=== PATIENT | female | born 1965 | race Caucasian/White ===

== ENCOUNTER 2019-01-16 10:15 | Day surgery (SDC) | payer OTHER ==
[~2019-01-16] VITALS: Ht 162.6 cm; Wt 59.9 kg
[~2019-01-16 10:15] MED LIST: LEVO112T4 PO
[2019-01-16] MEDS ORDERED: potassium PO (10:58)
[2019-01-16] MEDS ORDERED: MAGN400C PO (10:58)
[2019-01-16] MEDS ORDERED: biotin PO (10:58)
[2019-01-16] MEDS ORDERED: ST.300CA PO (10:58)
[2019-01-16] MEDS ORDERED: natural thyroid PO (10:58)
[2019-01-16 10:59] VITALS: BP 120/78
[2019-01-16] MEDS ORDERED: LACTATED RINGERS 1,000 ML IV SCH (11:35)
[2019-01-16] MEDS ORDERED: LIDOCAINE-MPF 1%, 2ML ONE (11:41)
[2019-01-16 11:44] LABS: HCG UR SG 1.019 (1.003-1.030)
[2019-01-16] MEDS ORDERED: LIDOCAINE-MPF 1%, 2ML INFIL ONE (12:00)
[2019-01-16] MEDS ORDERED: FENTANYL PF 100 MCG/2ML ONE (13:12)
[2019-01-16] MEDS ORDERED: MIDAZOLAM 1 MG/ML, 2ML ONE (13:13)
[2019-01-16] MEDS ORDERED: PROPOFOL 100 ML ONE (13:14)
[2019-01-16] MEDS ORDERED: OXYcodone 5 MG/5 ML ORAL.SOL UDC PO PRN (13:30)
[2019-01-16] MEDS ORDERED: ONDANSETRON 2MG/ML, 2ML IV PRN (13:30)
[2019-01-16] MEDS ORDERED: HYDROmorphone 2 MG/ML, 1ML IVPush PRN (13:30)
[2019-01-16] MEDS ORDERED: ACETAMINOPHEN 325 MG TABLET PO PRN (13:30)
[2019-01-16] MEDS ORDERED: ONDANSETRON ODT 8 MG PO PRN (13:30)
[2019-01-16] MEDS ORDERED: PROMETHAZINE 25 MG/ML, 1ML IV PRN (13:30)
[2019-01-16] MEDS ORDERED: FENTANYL PF 100 MCG/2ML IV PRN (13:30)
[2019-01-16] MEDS ORDERED: PROMETHAZINE 25 MG SUPP PR PRN (13:30)
[2019-01-16] MEDS ORDERED: LORazepam 2 MG/ML, 1ML IVPush PRN (13:30)
[2019-01-16] MEDS ORDERED: DIAZEPAM 5 MG/ML, 2ML IVPush PRN (13:30)
[2019-01-16] MEDS ORDERED: LIDOCAINE-MPF 2% ,5ML ONE (13:39)
[2019-01-16] MEDS ORDERED: DEXAMETHASONE 4 MG/ML, 1ML ONE (13:39)
[2019-01-16] MEDS ORDERED: ONDANSETRON 2MG/ML, 2ML ONE (13:39)
[2019-01-16] MEDS ORDERED: PROPOFOL 10 MG/ML, 20ML ONE (13:39)
[2019-01-16] MEDS ORDERED: CEFAZOLIN 1,000 MG ONE (13:39)
[2019-01-16] MEDS ORDERED: OXYcodone 5 MG/5 ML ORAL.SOL UDC ONE (14:10)
[2019-01-16] MEDS ORDERED: KETOROLAC 30 MG/1 ML IVPush PRN (15:00)
[2019-01-16] MEDS ORDERED: OXYcodone/APAP 5/325MG TABLET PO PRN (15:00)
== END 2019-01-16 17:00 | disposition home or self-care (01) ==
LOC: OUT 10:15
PROVIDERS: ATTEND Obstetrics & Gynecology Female Pelvic Medicine and Reconstructive Surgery
DX: N84.2 Polyp of vagina (principal); N95.0 Postmenopausal bleeding; G43.909 Migraine, unspecified, not intractable, without status migrainosus; I10 Essential (primary) hypertension; E03.9 Hypothyroidism, unspecified; F19.90 Other psychoactive substance use, unspecified, uncomplicated; Z98.890 Other specified postprocedural states; Z87.891 Personal history of nicotine dependence; Z79.82 Long term (current) use of aspirin; Z91.040 Latex allergy status
CPT/HCPCS: 58558; 81025; 88305; J0690; J1100; J1885; J2250; J2405; J2704; J3010; J7120